=== PATIENT | male | born 1970 | race Caucasian/White ===

== ENCOUNTER 2017-06-12 20:00 | Emergency (ER) | payer OTHER ==
[~2017-06-12] VITALS: Ht 167.6 cm; Wt 116.2 kg
[~2017-06-12 20:00] MED LIST: ASPEC325 PO; LISI20TA3 PO; MULT-589 PO; THIA50CA PO; TPRSR25 PO; VENL75CA73 PO
[2017-06-12 20:03] VITALS: TEMP 37.1; Ht 167.6 cm; Wt 116.2 kg
[2017-06-12 20:10] VITALS: O2SAT 94
[2017-06-12] MEDS ORDERED: FOLI1TAB8 PO (20:42)
[2017-06-12] MEDS ORDERED: LISI40TA PO (20:42)
[2017-06-12] MEDS ORDERED: METO25TA3 PO (20:42)
[2017-06-12] MEDS ORDERED: ASPI325T39 PO (20:42)
[2017-06-12] MEDS ORDERED: THIA50TA3 PO (20:42)
[2017-06-12] MEDS ORDERED: MULT-506 PO (20:42)
[2017-06-12] MEDS ORDERED: VENL150T33 PO (20:42)
[2017-06-12] MEDS ORDERED: VENL-273 PO (20:42)
[2017-06-12] MEDS ORDERED: ASPIRIN 81 MG CHEW PO STA (21:10)
[2017-06-12] MEDS ORDERED: LORAZEPAM 2 MG/ML 1 ML VIAL IV STA (21:10)
[2017-06-12 21:21] LABS: BASO % 0.6 %; BASO ABS # 0.06 K/uL (0-0.2); EOS % 3.7 %; EOS ABS # 0.35 K/uL (0-0.5); HEMOGLOBIN 15.6 g/dL (14.0-18.0); IG# 0.04 K/uL (0.00-0.02); LYMPH % 33.8 %; LYMPH ABS # 3.23 K/uL (1.2-3.4); MEAN CELL VOLUME 92.4 fL (80-100); MEAN CORPUSCULAR HEMOGLOBIN 32.8 pg (25-34); MEAN CORPUSCULAR HGB CONC 35.5 g/dl (32-36); MEAN PLATELET VOLUME 11.1 fL (7.4-10.4); MONO % 5.9 %; MONO ABS # 0.56 K/uL (0.11-0.59); NEUT % 55.6 %; NEUT ABS # 5.31 K/uL (1.4-6.5); PLATELET COUNT 234 K/uL (130-400); RED CELL DISTRIBUTION WIDTH CV 12.4 % (11.5-14.5); RED CELL DISTRIBUTION WIDTH SD 41.7 fL (36.4-46.3); WHITE BLOOD COUNT 9.55 K/uL (4.8-10.8)
--- NOTE | 2017-06-12 21:25 | DIAGNOSTIC IMAGING REPORT ---
CHEST ONE VIEW PORTABLE HISTORY: Atypical CHEST PAIN COMPARISON: Chest 01/29/2015. FINDINGS: The heart remains enlarged. Stable mild prominence of interstitial markings which is likely chronic. No new focal lung consolidations. No pleural effusions. No pneumothorax. IMPRESSION: No significant change compared to the prior study. No acute process. Stable cardiomegaly and mild interstitial thickening. Electronically signed by: Popeye Mendes M.D. 06/12/2017 9:24 PM Dictated Date/Time: 06/12/2017 9:22 PM
[2017-06-12 22:13] LABS: GLUCOSE 162 mg/dl (70-99); POTASSIUM 3.6 mmol/L (3.5-5.1); SODIUM 139 mmol/L (136-145)
[2017-06-12 22:16] LABS: ALT/SGPT 48 U/L (12-78); AST/SGOT 40 U/L (15-37)
[2017-06-12 22:28] LABS: ALBUMIN 3.6 gm/dl (3.4-5.0); ALKALINE PHOSPHATASE 96 U/L (45-117); BLOOD UREA NITROGEN 17 mg/dl (7-18); CALCIUM 8.7 mg/dl (8.5-10.1); CARBON DIOXIDE 24 mmol/L (21-32); CREATININE 1.02 mg/dl (0.60-1.40); LIPASE 247 U/L (73-393); TOTAL PROTEIN 7.6 gm/dl (6.4-8.2)
[2017-06-12 22:44] VITALS: BP 150/90; PULSE 84; O2SAT 99
--- NOTE | 2017-06-12 23:21 | EMERGENCY ROOM VISIT NOTE ---
History Report prepared by Randall: Willie Mckeon Under the Supervision of: Dr. Maxwell Younger M.D. First contact with patient: 21:02 Chief Complaint: IRREGULAR HEARTBEAT Stated Complaint: HEART FLUTTER Nursing Triage Summary: staets his heart has been fluttering all day since 1100 . denies pain. History of Present Illness The patient is a 46 year old male who presents to the Emergency Room with complaints of persistent heart palpitations beginning 10 hours ago. He denies chest pain, urinary symptoms, bloody stool, nausea, vomiting, or diarrhea. The patient is on Effexor, Metoprolol, and Lisinopril. He states that he has been taking his medications as normal. He has a history of A-fib, but states that his current symptoms feel different. He denies any LOC, or falls. The patient denies recent travel. No recent surgery. No history of blood clots. The patient admits that he drinks about a 12 pack of beer a day. His last drink was last night. He has gone though alcohol withdrawal in the past before but this does not feel similar. The patient states that he did not have a drink today because of his symptoms. He notes that he has been under a lot of stress recently. Source of History: patient Onset: 10 hours ago Quality: other (heart palpitations) Timing: other (persistent) Associated Symptoms: No LOC, No chest pain, No nausea, No vomiting, No hematochezia, No diarrhea, No urinary symptoms Note: Additional symptoms: "shakes" and lightheadedness. Review of Systems See HPI for pertinent positives and negatives. A total of ten systems were reviewed and were otherwise negative. Past Medical & Surgical Medical Problems: (1) Biceps tendon rupture (2) HTN (hypertension) Family History Diabetes mellitus Hypertension Social History Smoking Status: Current Some Day Smoker Alcohol Use: occasionally Marital Status: single Housing Status: lives with roommate Occupation Status: employed Current/Historical Medications Scheduled Aspirin (Aspirin Ec), 325 MG PO QAM Folic Acid (Folvite), 1 MG PO DAILY Lisinopril (Zestril), 40 MG PO DAILY Metoprolol Succ (Toprol Xl) (Toprol-Xl), 25 MG PO QAM Multivitamin (Multivitamin), 1 TAB PO DAILY Thiamine Hcl (Vitamin B-1), 50 MG PO DAILY Venlafaxine Hcl (Venlafaxine Hcl Er), 75 MG PO DAILY Venlafaxine Hcl (Venlafaxine Hcl Er), 150 MG PO DAILY Allergies Coded Allergies: No Known Allergies (Unverified , 01/29/15) Physical Exam Vital Signs Date Time Temp Pulse Resp B/P (MAP) Pulse Ox O2 Delivery O2 Flow Rate FiO2 06/12/17 22:44 84 20 150/90 99 Room Air 06/12/17 22:30 87 25 202/99 91 06/12/17 22:00 88 28 159/82 92 06/12/17 21:30 90 30 178/95 92 06/12/17 21:00 93 23 178/104 92 06/12/17 20:30 94 24 162/107 93 06/12/17 20:22 97 06/12/17 20:10 94 Room Air 06/12/17 20:03 37.1 99 20 186/99 95 Room Air Physical Exam GENERAL: Awake, alert, well-appearing, in no distress HENT: Normocephalic, Atraumatic. no hemotympanum bilaterally, santiago sign negative bilaterally. Oropharynx unremarkable. EYES: Normal conjunctiva. Sclera non-icteric. PERRL bilaterally. EOMI bilaterally. NECK: Supple. No nuchal rigidity. FROM. No JVD. No C-spine tenderness. RESPIRATORY: Clear to auscultation. No wheezes rales or rhonchi bilaterally CARDIAC: Regular rate, normal rhythm. Extremities warm and well perfused. Equal palpable radial pulses to the bilateral upper extremities. Equal palpable DP pulses to the bilateral lower extremities. ABDOMEN: Soft, non-distended. No tenderness to palpation. No rebound or guarding. No masses. Rovsig Negative. RECTAL: Deferred. MUSCULOSKELETAL: Chest examination reveals no tenderness. The back is symmetrical on inspection without obvious abnormality. There is no CVA tenderness to palpation. No joint edema. LOWER EXTREMITIES: Calves are equal size bilaterally and non-tender. No edema. No discoloration. NEURO: Normal sensorium. No sensory or motor deficits noted. No pronator drift. No facial droop. No dysarthria. No tremor SKIN: No rash or jaundice noted. Medical Decision & Procedures ER Provider Diagnostic Interpretation: Radiology results as stated below per my review and radiologist interpretation: CHEST ONE VIEW PORTABLE FINDINGS: The heart remains enlarged. Stable mild prominence of interstitial markings which is likely chronic. No new focal lung consolidations. No pleural effusions. No pneumothorax. IMPRESSION: No significant change compared to the prior study. No acute process. Stable cardiomegaly and mild interstitial thickening. Electronically signed by: Popeye Mendes M.D. 06/12/2017 9:24 PM Laboratory Results 06/12/17 20:12 Red Blood Count 4.76, Mean Corpuscular Volume 92.4, Mean Corpuscular Hemoglobin 32.8, Mean Corpuscular Hemoglobin Concent 35.5, Mean Platelet Volume 11.1, Neutrophils (%) (Auto) 55.6, Lymphocytes (%) (Auto) 33.8, Monocytes (%) (Auto) 5.9, Eosinophils (%) (Auto) 3.7, Basophils (%) (Auto) 0.6, Neutrophils # (Auto) 5.31, Lymphocytes # (Auto) 3.23, Monocytes # (Auto) 0.56, Eosinophils # (Auto) 0.35, Basophils # (Auto) 0.06 06/12/17 20:12 Test 06/12/17 20:12 White Blood Count 9.55 K/uL (4.8-10.8) Red Blood Count 4.76 M/uL (4.7-6.1) Hemoglobin 15.6 g/dL (14.0-18.0) Hematocrit 44.0 % (42-52) Mean Corpuscular Volume 92.4 fL (80-100) Mean Corpuscular Hemoglobin 32.8 pg (25-34) Mean Corpuscular Hemoglobin Concent 35.5 g/dl (32-36) Platelet Count 234 K/uL (130-400) Mean Platelet Volume 11.1 fL (7.4-10.4) Neutrophils (%) (Auto) 55.6 % Lymphocytes (%) (Auto) 33.8 % Monocytes (%) (Auto) 5.9 % Eosinophils (%) (Auto) 3.7 % Basophils (%) (Auto) 0.6 % Neutrophils # (Auto) 5.31 K/uL (1.4-6.5) Lymphocytes # (Auto) 3.23 K/uL (1.2-3.4) Monocytes # (Auto) 0.56 K/uL (0.11-0.59) Eosinophils # (Auto) 0.35 K/uL (0-0.5) Basophils # (Auto) 0.06 K/uL (0-0.2) RDW Standard Deviation 41.7 fL (36.4-46.3) RDW Coefficient of Variation 12.4 % (11.5-14.5) Immature Granulocyte % (Auto) 0.4 % Immature Granulocyte # (Auto) 0.04 K/uL (0.00-0.02) Anion Gap 12.0 mmol/L (3-11) Est Creatinine Clear Calc Drug Dose 108.5 ml/min Estimated GFR () 101.7 Estimated GFR (Non- 87.7 BUN/Creatinine Ratio 16.8 (10-20) Calcium Level 8.7 mg/dl (8.5-10.1) Total Bilirubin 0.4 mg/dl (0.2-1) Direct Bilirubin < 0.1 mg/dl (0-0.2) Aspartate Amino Transf (AST/SGOT) 40 U/L (15-37) Alanine Aminotransferase (ALT/SGPT) 48 U/L (12-78) Alkaline Phosphatase 96 U/L (45-117) Troponin I < 0.015 ng/ml (0-0.045) Total Protein 7.6 gm/dl (6.4-8.2) Albumin 3.6 gm/dl (3.4-5.0) Lipase 247 U/L (73-393) Laboratory results reviewed by me Medications Administered Medications (Trade) Dose Ordered Sig/Sylvester Route Start Time Stop Time Status Last Admin Dose Admin Aspirin (Aspirin Chew) 324 mg NOW STAT PO 06/12/17 21:10 06/12/17 21:12 DC 06/12/17 21:22 324 MG Lorazepam (Ativan Inj) 1 mg NOW STAT IV 06/12/17 21:10 06/12/17 21:12 DC 06/12/17 21:22 1 MG ECG Indication: palpitations Rate (beats per minute): 101 Rhythm: sinus tachycardia Findings: T-wave inversion (Mild. V1, V2 and AVL), other (CT, QRS and QTC intervals within normal limits. No ST elevation or depression.) Comparison ECG Date: January 2015 Change: no significant change Change: Repeat ECG reveals a sinus rhythm with a rate of [address], QRS, and QTC intervals are within normal limits. T-wave inversions in V1, V2, and AVL. No ST elevation or depression. No significant change from prior ECG or ECG from January 2015 ED Course 2102: The patient was evaluated in room C4. A complete history and physical exam was performed. 2299: Patient's vital signs are stable. His labs are within normal limits. EKG shows no acute change. Patient reports no chest pain or SOB. Reports that his palpitations resolved after receiving Ativan. Patient states that he is under a tremendous amount of stress with work and raising five children at home. He states that he feels much better now. He agrees to follow up with his PCP about palpitations, stress management skills, and alcohol abuse. It is thought that the patient's symptoms are most likely due to stress. I encouraged that he decrease the amount of alcohol he is consuming, but also warned him about not stopping abruptly. Patient understood, and will no stop abruptly but rather wean himself down. Medical Decision Patient's vital signs are stable. His labs are within normal limits. EKG shows no acute change. Patient reports no chest pain or SOB. Reports that his palpitations resolved after receiving Ativan. Patient states that he is under a tremendous amount of stress with work and raising five children at home. He states that he feels much better now. He agrees to follow up with his PCP about palpitations, stress management skills, and alcohol abuse. It is thought that the patient's symptoms are most likely due to stress. I encouraged that he decrease the amount of alcohol he is consuming, but also warned him about not stopping abruptly. Patient understood, and will no stop abruptly but rather wean himself down. Medication Reconcilliation Current Medication List: was personally reviewed by me Blood Pressure Screening Patient's blood pressure: Elevated blood pressure Blood pressure disposition: Referred to PCP Impression Primary Impression: Palpitations Additional Impressions: Stress at work Alcohol abuse Scribe Attestation The scribe's documentation has been prepared under my direction and personally reviewed by me in its entirety. I confirm that the note above accurately reflects all work, treatment, procedures, and medical decision making performed by me. The chart was completed utilizing [employer] voice recognition software. Grammatical errors, random word insertions, pronoun errors, and incomplete sentences are an occasional consequence of this system due to software limitations, ambient noise, and hardware issues. Any formal questions or concerns about the content, text, or information contained within the body of this dictation should be directly addressed to the physician for clarification. Departure Information Dispostion Home / Self-Care Referrals Guy Delgado MD (PCP) Forms HOME CARE DOCUMENTATION FORM, IMPORTANT VISIT INFORMATION Patient Instructions Alcohol Abuse - [facility], ED Palpitations, My [facility], Shortness of Breath Control Stress, Stress Cardiovascular Health Problem Qualifiers
== END 2017-06-12 23:16 | disposition home or self-care (01) ==
LOC: C.EDB 20:01 → C.EDC 23:16
DX: R00.2 Palpitations (principal); F10.129 Alcohol abuse with intoxication, unspecified; F43.8 Other reactions to severe stress; I10 Essential (primary) hypertension; F17.200 Nicotine dependence, unspecified, uncomplicated; Z87.828 Personal history of other (healed) physical injury and trauma; Z79.82 Long term (current) use of aspirin; Z79.899 Other long term (current) drug therapy; Z83.3 Family history of diabetes mellitus; Z82.49 Family history of ischemic heart disease and other diseases of the circulatory system